=== PATIENT | male | born 1995 | race Caucasian/White ===

== ENCOUNTER 2025-02-20 09:41 | Outpatient (OUT) | payer OTHER, SELFPAY ==
--- NOTE | 2025-02-20 | XR_ITS ---
[facility] [place] [address] Patient Name: PJ SMITH MRN: [id number] date: 1995 Sex: M Assigned Patient Location: [facility] Current Patient Location: [facility] Accession/Order Number: [id number] Exam Date: 02/20/2025 09:48 Report Date: 02/20/2025 12:10 At the request of: DI VELAZCO DO Procedure: XR knee RT 3V RIGHT KNEE - 3 views COMPARISON: None CLINICAL DATA: Follow-up after knee arthroscopy. Standing AP, lateral and internal oblique views were obtained. There is no acute fracture or dislocation. There are anchor buttons along the lateral superior femoral condyle and at the anterior medial tibial metaphysis. There is no disproportionate joint space narrowing. A small knee effusion is seen. XR/XR knee RT 3V IMPRESSION: POSTOPERATIVE CHANGES. SMALL KNEE EFFUSION. Impression dictated by: Radha Hart M.D. 02/20/2025 12:10 PM Dictation Location: [facility] Electronically authenticated by: [id number] Y Date: 02/20/2025 12:10
--- OUTSIDE RECORDS SUMMARY | 2025-02-20 09:43 | XMS_ITS | Encounter Summary ---
Author Organization [facility] Healthcare Address [address] [place] [address] Care Team Providers Care Landscape Technician Name Role Phone Karen Hsu MD Primary Care Provider [phone] Encounter Details Date Type Department Care Team (Late st Contact Info) Description 01/06/2025 Results Follow-Up [facility] Family Medicine [address] [place] [address] Meri Chen NP [address] [place], [place] [id number] XR knee 4+ views right, MR knee right wo IV contrast Social History Tobacco Use Types Packs/Day Years Used Date Smoking Tobacco: Former Cigarettes - 2015 Passive Smoke Exposure: Never Smokeless Tobacco: Current Snuff Alcohol Use Standard Drinks/Week Comments Yes 0 (1 standard drink = 0.6 oz pur e alcohol) caffeine: 2-3 cups per day AUDIT-C Answer Date Recorded Q1: How often do you have a drink containing alcohol? 4 or more times a week 06/12/2023 Q2: How many drinks containi ng alcohol do you have on a typical day when you are drinking? 3 or 4 Q3: How often do you have si x or more drinks on one occasion? Never 06/12/2023 Sex and Gender Information Value Date Recorded Sex Assigned at Not on file Legal Sex Male 6:33 PM EDT Gender Identity Not on file Sexual Orientation Not on file documented as of this encounter Miscellaneous Notes * Result Encounter Note - Meri Chen NP - 01/08/2025 2:46 PM EDT That will depend on ortho. Not sure what their plan will be. * Telephone Encounter - Olya Vasquez MA - 01/08/2025 2:44 PM EDT Patient is wondering what he should do for work if he should get fmla paperwork and when he possibly will go back. * Result Encounter Note - Meri Chen NP - 01/08/2025 2:35 PM EDT Noted thanks * Result Encounter Note - Meri Chen NP - 01/08/2025 1:49 PM EDT Let patient know he has a partial tear of the anterior cruciate ligament. Did he get scheduled withortho yet? Please call and fax results to orthopedic that I put referral in for please. * Result Encounter Note - Meri Chen NP - 01/06/2025 1:50 PM EDT Let patient know his xray showed possible fluid on knee. No bony injuries. documented in this encounter Plan of Treatment Not on file documented as of this encounter Visit Diagnoses Not on filedocumented in this encounter Care Teams Landscape Technician Relationship Specialty Start Date End Date Wonderly, Karen Steinberg MD PCP - General Family Medicine 11/01/22 documented as of this encounter
--- OUTSIDE RECORDS SUMMARY | 2025-02-20 09:43 | XMS_ITS | Clinical Summary ---
Author Organization [facility] Address [address] [place] [address] Care Team Providers Care Fulfillment Mail Clerk Name Role Phone Karen Hsu MD Primary Care Provider [phone] Allergies Active Allergy Reactions Criticality Noted Date Comments Cat Dander 09/08/2020 Pt allergic to cats Cetirizine 09/08/2020 Gave pt shingles according to pt Other 04/26/2023 Metals Medications MULTIPLE VITAMIN PO Take by mouth. Activ e ECHINACEA COMPLEX PO Take by mouth. Acti ve fluticasone (Flonase) 50 MCG/ACT nasal spray Administer 1 spray into each nostril in the morning. Shake gently. Before first use, prime pump. After use, clean tip and replace cap.. Active mometasone (Nasonex) 50 MCG/ACT nasal spray Administer 2 sprays into each nostril in the morning. Active Glutamine 500 MG capsule Take by mouth Active Ascorbic Acid (vitamin C) 1000 MG tablet Take 1,000 mg by mouth Daily Active clindamycin (Clindagel) 1 % gelIndications:O ther acne Apply topically Daily 60 g 1 4 Active Additional Information Patient not taking.Reported on 05/03/2024 predniSONE (Deltasone) 10 MG tabletIndication s:Poison stephanie Take 1 tablet (10 mg) by mouth Daily 18 tablet 4 Active Additional Information Patient not taking.Reported on 05/03/2024 albuterol HFA 90 mcg/act inhalerIndicatio ns:Cough, unspecified type,Chest tightness Inhale 2 puffs every 4 (four) hours if needed for wheezing for up to 10 days 18 g 4 Active Active Problems Problem Noted Date Diagnosed Date Gastroesophageal reflux disease 04/20/2023 Sinusitis 04/20/2023 Ventral hernia without obstruction or gangrene 1 Encounters Date Type Department Care Team Description 01/08/2025 10:45 AM EDT Ancillary Procedure [facility] [address] [facility] [address] [place] [phone] Acute pain of right knee 01/08/2025 Travel 01/06/2025 12:00 PM EDT Office Visit [facility] [address] [place] [phone] Meri Chen NP Acute pain of right knee (Primary Dx) 01/06/2025 10:00 AM EDT Ancillary Procedure [facility] [address] [facility] [address] [place] [phone] Acute pain of right knee 01/06/2025 Results Follow-Up [facility] [address] [facility] [place] [phone] Meri Chen NP XR knee 4+ views right, MR knee right wo IV contrast 01/06/2025 Travel 01/06/2025 Telephone [facility] [address] [place] [address] Karen Hsu MD from Last 3 Months Immunizations Immunization Administration Dates Next Due DTP 1993,1993,1993 DTaP, Unspecified 08/24/1994 Hep B, Adolescent or Pediatric 1993,1993,1993 HiB, unspecified 08/24/1994,1993, 4,1993 MMR 11/27/1998,08/24/1994 OPV 11/27/1998,1993,1993 ,1993 Tdap 09/17/2018 Family History Medical History Relation Name Comments Gestational diabetes Mother Mitral valve prolapse Mother Relation Name Status Comments Father Alive Mother Alive Other Grandparent- ar thritisGreat Aunt- cancer Sister 1 Social History Tobacco Use Types Packs/Day Years Used Date Smoking Tobacco: Former Cigarettes 2 - 2015 Passive Smoke Exposure: Never Smokeless Tobacco: Current Snuff Tobacco Cessation:Ready to Q uit: Not Asked; Counseling Given: Not Answered Alcohol Use Standard Drinks/Week Comments Yes 0 [...] on file Sexual Orientation Not on file Last Filed Vital Signs Vital Sign Reading Time Taken Comments Blood Pressure 136/60 01/06/2025 11:41 AM EDT Pulse 80 05/03/2024 3:01 PM EST Temperature 36.3 C (97.3 F) 01/06/2025 11:41 AM EDT Respiratory Rate - - Oxygen Saturation 98% 05/03/2024 3:01 PM EST Inhaled Oxygen Concentration - - Weight 86.2 kg (190 lb) 01/06/2025 11:41 AM EDT Height 175.9 cm (5' 9.25 ) 06/15/2021 12:[address] Body Mass Index 27.86 06/15/2021 12:00 PM EST Plan of Treatment Not on file Procedures Procedure Name Priority Date/Time Associated Diagnosis Comments MR KNEE RIGHT WO IV CONTRAST Routine 01/08/2025 11:19 AM EDT Acute pain of right knee XR KNEE 4+ VIEWS RIGHT Routine 01/06/2025 11:43 AM EDT Acute pain of right knee from Last 3 Months Results * MR knee right wo IV contrast (01/08/2025 11:19 AM EDT) Anatomical Region Laterality Modality Lower Extremities, Knee Right Magnetic Resonance 01/08/2025 12:4 2 PM EDT Impressions 01/08/2025 12:47 PM EDT Partial-thickness tear of the anterior cruciate ligament. ELECTRONICALLY SIGNED BY: Claude Mcdonough DO Narrative 01/08/2025 12:47 PM EDT Exam: MR KNEE RIGHT WO IV CONTRAST History: Twisting injury. Knee pain Technique: Multiplanar multisequence MRI of the knee was performed without contrast. Comparison: Radiographs January 06, 2025 Findings: Quadriceps and patellar tendons are intact. Small joint effusion. Partial-thickness tear of the anterior cruciate ligament involving approximately 50% thickness of the ligament. The posterior cruciate ligament is intact. Small bone contusion of the posterior medial tibial plateau The medial collateral ligament, lateral collateral ligament, and popliteus are intact. The medial and lateral meniscus are intact. No well-defined or measurable cartilage defect. Popliteal fossa structures are intact. No Lorenzana cyst. Procedure Note Claude Mcdonough DO - 01/08/2025 Exam: MR KNEE RIGHT WO IV CONTRAST History: Twisting injury. Knee pain Technique: Multiplanar multisequence MRI of the knee was performed withoutcontrast. Comparison: Radiographs January 06, 2025 Findings: Quadriceps and patellar tendons are intact. Small joint effusion. Partial-thickness tear of the anterior cruciate ligament involvingapproximately 50% thickness of the ligament. The posterior cruciateligament is intact. Small bone contusion of the posterior medial tibialplateau The medial collateral ligament, lateral collateral ligament, and popliteusare intact. The medial and lateral meniscus are intact. No well-defined or measurable cartilage defect. Popliteal fossa structures are intact. No Lorenzana cyst. IMPRESSION: Partial-thickness tear of the anterior cruciate ligament. ELECTRONICALLY SIGNED BY: Claude Mcdonough DO Meri Chen NP IMG MRI PROCEDURES [facility] Result * XR knee 4+ views right (01/06/2025 11:43 AM EDT) Anatomical Region Laterality Modality Lower Extremities, Knee Right Radiogra phic Imaging 01/06/2025 1:40 PM EDT Impressions 01/06/2025 1:43 PM EDT No fracture. Possible knee effusion. ELECTRONICALLY SIGNED BY: Alex Awan MD Narrative 01/06/2025 1:43 PM EDT Right knee. HISTORY: Twist type injury 2 days ago. [place] a pop . Anterior pain and instability. FINDINGS: No fracture, dislocation, bone lesion, identified. Increased opacification visualized right suprapatellar space. Joint spaces are maintained. Procedure Note Alex Awan MD - 01/06/2025 Right knee. HISTORY: Twist type injury 2 days ago. [place] a pop . Anterior pain andinstability. FINDINGS: No fracture, dislocation, bone lesion, identified. Increased opacification visualized right suprapatellar space. Joint spaces are maintained. IMPRESSION: No fracture. Possible knee effusion. ELECTRONICALLY SIGNED BY: Alex Awan MD Meri Chen STRUCTURAL STEEL ENGINEER IMG XR PROCEDURES Final Result from Last 3 Months [place] [id number] Care Teams Fulfillment Mail Clerk Relationship Specialty Start Date End Date Karen Hsu MD PCP - General Family Medicine 11/01/22
== END 2025-02-20 09:42 | disposition home or self-care (01) ==
LOC: RAD 09:42
PROVIDERS: PCP Family Medicine; Visit Provider Physician Assistant
DX: M25.461 Effusion, right knee (principal); Z98.890 Other specified postprocedural states
CPT/HCPCS: 73562